=== PATIENT | male | born 1985 | race Caucasian/White ===

== ENCOUNTER 2019-08-25 03:11 | Emergency (ER) | payer OTHER ==
[~2019-08-25] VITALS: Ht 170.2 cm; Wt 72.6 kg
[2019-08-25 03:28] VITALS: BP 131/82
--- NOTE | 2019-08-25 03:33 | NUR ---
Note amparoone in EDM - 08/25/19 at 0336 by [email or web address] Patient walked into ED c/o left bottom toothache onset for 1 day now ER Nurse Note: Pt walked in c/o LT lower tooth ache since 08/22. Pt stated 03/14 pain and stated "It may be a nerve infection" and stated it is painful to swollow. ERMD at pt side; will continue to kyaw.
--- NOTE | 2019-08-25 03:37 | NUR ---
ER Nurse Note: Pt walked in c/o LT lower tooth ache since 08/22. Pt stated 03/14 pain and stated "It may be a nerve infection" and stated it is painful to swollow. ERMD at pt side; will continue to montior.
[2019-08-25] MEDS ORDERED: Clindamycin 150mg cap ORAL ONE (03:45)
[2019-08-25] MEDS ORDERED: CLINDAMYCIN HC300 MG ORAL (03:47)
[2019-08-25] MEDS ORDERED: IBUPROFEN600 MG ORAL (03:47)
[2019-08-25] MEDS ORDERED: HYDROCODON-ACE1 EA15 ORAL (03:47)
--- NOTE | 2019-08-25 03:48 | Emergency Room Report ---
History of Present Illness General Chief Complaint: Toothache Source: Patient Present Illness HPI Is a 33-year-old male with no past medical history. Presents with chief complaint of dental pain. Onset for about 30 to 36 hours now. Pain is to the left lower jaw. Throbbing in nature. Worse with eating. No fever chills but no nausea no vomiting. No swelling. Pain is 9 out of 10. [facility]lhl[facility] medicine not helping. Unable to get to see a dentist because everyone is closed. COVID-19 risk:Contact w/high r: No COVID-19 risk:Travel to affect: No Has patient experienced cartwright: No Allergies: Coded Allergies: No Known Allergies (Unverified , 08/25/19) Patient History Past Medical History: see triage record, old chart reviewed Past Surgical History: none Pertinent Family History: none Social History: Denies: smoking Immunizations: other Reviewed Nursing Documentation: PMH: Agreed; PSxH: Agreed Nursing Documentation-PMH Past Medical History: No Stated History Review of Systems Eye: Denies: eye pain, blurred vision ENT: Denies: ear pain, nose congestion, throat swelling Respiratory: Denies: cough, shortness of breath Cardiovascular: Denies: chest pain, palpitations Gastrointestinal: Denies: abdominal pain, diarrhea, nausea, vomiting Musculoskeletal: Denies: back pain, joint pain Skin: Denies: rash Neurological: Denies: headache, numbness Endocrine: Denies: increased thirst, increased urine Hematologic/Lymphatic: Denies: easy bruising All Other Systems: negative except mentioned in HPI Physical Exam Vital Signs Date Time Temp Pulse Resp B/P (MAP) Pulse Ox O2 Delivery O2 Flow Rate FiO2 08/25/19 03:20 97.5 51 18 131/82 (98) 99 Room Air Vitals normal Sp02 EP Interpretation: reviewed, normal General Appearance: well appearing, no apparent distress, alert Head: normocephalic, atraumatic Eyes: bilateral eye PERRL, bilateral eye EOMI ENT: hearing grossly normal, normal pharynx, other - Left lower second molar has a crown. You can see dental decay underneath it. Neck: full range of motion, supple, no meningismus Respiratory: chest non-tender, lungs clear, normal breath sounds Cardiovascular #1: regular rate, rhythm, no murmur Gastrointestinal: normal bowel sounds, non tender, no mass, no organomegaly, no bruit, non-distended Musculoskeletal: back normal, normal range of motion, gait/station normal Psychiatric: mood/affect normal Procedures Additional Procedure Procedure Narrative Procedure: Dental block indication: dental pain Description: I injected 2-1/2 cc of 1% lidocaine with epinephrine into the left lower inferior alveolar ridge. Good pain control. Patient tolerated procedure without any problem. Medical Decision Making Diagnostic Impression: Primary Impression: Toothache Additional Impression: Dental abscess ER Course Patient presents with dental pain. Maybe half a small abscess. Nothing to be I &D. Will discharge home. Last Vital Signs Date Time Temp Pulse Resp B/P (MAP) Pulse Ox O2 Delivery O2 Flow Rate FiO2 08/25/19 03:28 97.5 78 18 131/82 99 Room Air Status: improved Disposition: HOME, SELF-CARE Condition: Stable Scripts Ibuprofen* (MOTRIN*) 600 Mg Tablet 600 MG ORAL THREE TIMES A DAY, #30 TAB 0 Refills Prov: Robe Rinaldi MD 08/25/19 Hydrocodone/Acetaminophen 5-325* (HYDROCODONE/ACETAMINOPHEN 5-325*) 1 Each Tablet 1 TAB ORAL Q6H PRN for For Pain, #20 TAB 0 Refills Prov: Robe Rinaldi MD 08/25/19 Clindamycin Hcl (CLINDAMYCIN HCL) 300 Mg Capsule 300 MG ORAL THREE TIMES A DAY, #21 CAP Prov: Robe Rinaldi MD 08/25/19 Patient Instructions: Dental Pain Additional Instructions: Follow-up with dentist CM. Return if symptoms worsen. Robe Rinaldi MD Aug 25, 2019 03:47
[2019-08-25 03:55] VITALS: BP 131/82
--- NOTE | 2019-08-25 03:55 | NUR ---
ED Nurse Note: Pt cleared by health care Provider for discharge. DC instructions/prescription was given and explained to pt and verbalized understanding of teachings. All medical deviecs such as ID band removed. Pt is AAO x4, ambulatory and left with all personal belongings.
== END 2019-08-25 03:55 | disposition home or self-care (01) ==
LOC: EMR 03:43
DX: K08.89 Other specified disorders of teeth and supporting structures (principal); R68.84 Jaw pain; K04.7 Periapical abscess without sinus
CPT/HCPCS: 99282